=== PATIENT | male | born 1955 | race Caucasian/White ===

== ENCOUNTER 2019-04-02 08:05 | Day surgery (SDC) | payer OTHER ==
[~2019-04-02] VITALS: Ht 177.8 cm; Wt 99.8 kg
[~2019-04-02 08:05] MED LIST: ATENOLOL50 MG PO; CARDURA8 MG; HYZAAR 100-121 UDTAB; NORVASC10 MG
[2019-04-02] MEDS ORDERED: CIPRO500 MG PO (08:14)
[2019-04-02] MEDS ORDERED: FLAGYL500MG PO (08:14)
--- NOTE | 2019-04-02 08:14 | NUR ---
PT REFIERE TENER ABCESO EN AREA DE ANO DESDE HACE 1 SEMANA.
--- NOTE | 2019-04-02 09:13 | NUR ---
SE RECIBE PTE MASCULINO DE 63 YRS ALERTA CONCIENTE Y TRANQUILO EN ANDRY CON BARANDAS ELVADA. PTE ES EVALUADA POR EL QUIEN ORDENA TRATAMIETO LA CUAL SE EJECUTA POR MS.MARRERO BERNSTEIN . SE LE COMIENZA EN ANTIBIOTICO ORENADOS, MANTIENE BAJO OBSERVACION .
--- NOTE | 2019-04-02 11:41 | NUR ---
SE ORIENTA A PT SOBRE REMOCION DE PERTENENCIAS, SE PREPARA PT CON VESTIMENTA QUIRURGICA Y SE ENVIA A JEFE DE OPERACIONES EN ANDRY ACOMPANADO DE ESCOLTA DE TURNO Y FAMILIAR.
[2019-04-02] MEDS ORDERED: PERCOCET 5-3251 EACH PO (14:44)
== END 2019-04-02 13:00 | disposition home or self-care (01) ==
LOC: ER 08:05 → EDBD 08:05 → ER 08:09 → CIR.AMB 10:00 → O/R 10:56 → SEC-K 10:56 → ER 10:56 → EDSTATUS 11:45 → CIR.AMB 13:00 → SEC-K 14:57 → O/R 14:57
DX: K60.1 Chronic anal fissure (principal)